=== PATIENT | male | born 1990 | race Caucasian/White ===

== ENCOUNTER 2021-04-10 11:07 | Emergency (ER) | payer OTHER ==
[~2021-04-10] VITALS: Ht 180.3 cm; Wt 72.6 kg
[2021-04-10] MEDS ORDERED: HYDROCODON-ACE1 EA10 PO (12:02)
[2021-04-10] MEDS ORDERED: CEPHALEXIN500 MG PO (12:02)
== END 2021-04-10 12:14 | disposition home or self-care (01) ==
LOC: ED 11:07
DX: K02.9 Dental caries, unspecified (principal)
CPT/HCPCS: 99282

== ENCOUNTER 2021-05-15 17:34 | Emergency (ER) | payer OTHER ==
[~2021-05-15] VITALS: Ht 180.3 cm; Wt 72.6 kg
[~2021-05-15 17:34] MED LIST: CEPHALEXIN500 MG PO; HYDROCODON-ACE1 EA10 PO
[2021-05-15] MEDS ORDERED: HYDROCODON-ACE1 EA11 PO (18:23)
[2021-05-15] MEDS ORDERED: ONDANSETRON ODT8 MG PO (18:23)
--- NOTE | 2021-05-17 17:50 | EKG ---
[facility] [address] [facility] [place], [place] [address] Signed Sinus rhythm with short LA Otherwise normal ECG No previous ECGs available Confirmed by SHAUN PRASAD MD ([id number] on 05/17/2021 5:50:41 PM Electronically Signed By: SHAUN PRASAD MD 05/17/21 1750 PATIENT NAME: OUMOU SHIN Electrocardiogram DATE OF : 88 PHYSICIAN: SHAUN PRASAD MD REPORT #: [id number] REPORT IS CONFIDENTIAL AND NOT TO BE RELEASED WITHOUT AUTHORIZATION
== END 2021-05-15 18:36 | disposition home or self-care (01) ==
LOC: ED 17:34
DX: R55 Syncope and collapse (principal); S02.5XXA Fracture of tooth (traumatic), initial encounter for closed fracture; S03.2XXA Dislocation of tooth, initial encounter; W17.89XA Other fall from one level to another, initial encounter
CPT/HCPCS: 36415; 80048; 85025; 93005; 93010; 99284-25